=== PATIENT | male | born 1945 | race Caucasian/White ===

== ENCOUNTER → 2018-06-01 | Outpatient (CLI) | payer MEDICARE ==
--- NOTE | 2018-06-01 14:38 | PCVCIMAG ---
APPROVED REPORT Study performed: 06/01/2018 13:14:38 EXAM: Comprehensive 2D, Doppler, and color-flow Echocardiogram Patient Location: Echo lab Room #: 2Status: routine BSA: 2.00 HR: 57 bpmBP: 148/78 mmHg Rhythm: NSR Other Information Study Quality: Adequate Risk Factors: Cardiac Risk Factors: HTN, Hyperlipidemia Indications Aortic Valve Disease Mitral Valve Disease CAD Hypertension/HDD 2D Dimensions IVSd: 8.18 (7-11mm)LVOT Diam: 21.25 (18-24mm) LVDd: 47.11 mm PWd: 8.53 (7-11mm)Ascending Ao: 37.43 (22-36mm) LVDs: 26.27 (25-40mm) Left Atrium: 24.02 (27-40mm) Aortic Root: 31.45 mm LV Single Plane 4CH: 54.73 % LV Single Plane 2CH: 65.52 % Biplane EF: 60.1 % Volumes Left Atrial Volume (Systole) Single Plane 4CH: 27.91 mLSingle Plane 2CH: 39.77 mL Biplane LA Volume: 37.00 mLLA ESV Index: 19.00 mL/m2 Aortic Valve AoV Peak Octavio.: 1.22 m/s AO Peak Gr.: 5.95 mmHgLVOT Max P.18 mmHg LVOT Max V: 0.74 m/s KELLI Vmax: 2.14 cm2 AI Vmax: 4.28 m/s AI Concho: 1.72 m/s2 AI PHT: 741.85 ms Mitral Valve E/A Ratio: 0.6 MV Decel. Time: 330.14 ms MV E Max Octavio.: 0.55 m/s MV A Octavio.: 0.86 m/s IVRT: 141.87 ms TDI E/Lateral E': 9.17E/Medial E': 9.17 Medial E' Octavio.: 0.06 m/s Lateral E' Octavio.: 0.06 m/s Pulmonary Valve PV Peak Octavio.: 1.01 m/sPV Peak Gr.: 4.06 mmHg Tricuspid Valve TR Peak Octavio.: 1.97 m/s TR Peak Gr.: 15.59 mmHg TV Vmax: 0.53 m/sPA Pressure: 23.00 mmHg Left Ventricle The left ventricle is normal size. There is normal LV segmental wall motion. There is normal left ventricular wall thickness. Left ventricular systolic function is normal. The left ventricular ejection fraction is within the normal range. LVEF is 60%. Right Ventricle The right ventricle is normal size. The right ventricular systolic function is normal. Atria The left atrium size is normal. The right atrium size is normal. Aortic Valve Aortic valve is trileaflet. The Aortic valve is mildly sclerotic. Mild to moderate aortic regurgitation. There is no aortic valvular stenosis. Mitral Valve The mitral valve is normal in structure. Mild mitral regurgitation. No evidence of mitral valve stenosis. Tricuspid Valve The tricuspid valve is normal in structure. Mild tricuspid regurgitation with a PA pressure of 23 mmHg. No apparent pulmonary hypertension. Pulmonic Valve The pulmonary valve is normal in structure. There is no pulmonic valvular regurgitation. Great Vessels The aortic root is normal in size. The ascending aorta is normal in size. Aortic arch is normal in caliber. IVC is normal in size and collapses >50% with inspiration. Pericardium There is no pericardial effusion. There is no pleural effusion. <Conclusion> The left ventricle is normal size. There is normal left ventricular wall thickness. Left ventricular systolic function is normal. The right ventricle is normal size. The left atrium size is normal. Mild to moderate aortic regurgitation. Mild mitral regurgitation. Mild tricuspid regurgitation with a PA pressure of 23 mmHg.
== END | disposition home or self-care (01) ==
LOC: PCVCIMAG 13:12
PROVIDERS: ATTEND Internal Medicine Cardiovascular Disease
DX: I25.10 Atherosclerotic heart disease of native coronary artery without angina pectoris (principal); I10 Essential (primary) hypertension; E78.00 Pure hypercholesterolemia, unspecified; I08.3 Combined rheumatic disorders of mitral, aortic and tricuspid valves; E03.9 Hypothyroidism, unspecified; K21.9 Gastro-esophageal reflux disease without esophagitis; Z79.82 Long term (current) use of aspirin; Z87.891 Personal history of nicotine dependence
CPT/HCPCS: 93005; 93306; G0463

== ENCOUNTER → 2019-02-05 | Outpatient (CLI) | payer MEDICARE | END | disposition home or self-care (01) | LOC: PCVCCLINIC 13:30 | PROVIDERS: ATTEND Internal Medicine Cardiovascular Disease | DX: I25.10 Atherosclerotic heart disease of native coronary artery without angina pectoris (principal); I10 Essential (primary) hypertension; E78.00 Pure hypercholesterolemia, unspecified; R60.9 Edema, unspecified; K21.9 Gastro-esophageal reflux disease without esophagitis; Z79.82 Long term (current) use of aspirin; Z87.891 Personal history of nicotine dependence | CPT/HCPCS: 93005; G0463 ==